=== PATIENT | male | born 1980 | race Caucasian/White ===

== ENCOUNTER 2025-01-21 06:23 | Day surgery (SDC) | payer OTHER, SELFPAY | END 2025-01-21 13:45 | disposition home or self-care (01) | LOC: GI 06:23 | PROVIDERS: ATTENDING PHYSICIAN Internal Medicine Gastroenterology | DX: K21.00 Gastro-esophageal reflux disease with esophagitis, without bleeding (principal); K22.89 Other specified disease of esophagus; K44.9 Diaphragmatic hernia without obstruction or gangrene; K31.89 Other diseases of stomach and duodenum | CPT/HCPCS: 43239; 88305; 88342 ==